=== PATIENT | male | born 2000 | race Hispanic/Latino ===

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

== ENCOUNTER 2018-02-14 09:11 | Emergency (ER) | payer SELFPAY ==
--- NOTE | 2018-02-14 10:25 | ER ---
Nurse's Notes [facility] Name: Alexis Gallardo Age: 17 yrs Sex: Male : 2000 Arrival Date: 02/14/2018 Time: 09:14 Bed 9 Private MD: Diagnosis: Acute upper respiratory infection, unspecified Presentation: 02/14 09:39 Presenting complaint: Patient states: I worked outside in the cold and wet, today when ch I woke up i had lots of clear runny nasal drainage, and I am coughing. I dont feel well. Transition of care: patient was not received from another setting of care. Onset of symptoms was February 14, 2018 at 07:00. Risk Assessment: Do you want to hurt yourself or someone else? Patient reports no desire to harm self or others. Initial Sepsis Screen: Does the patient meet any 2 criteria? No. Patient's initial sepsis screen is negative. Does the patient have a suspected source of infection? No. Patient's initial sepsis screen is negative. Care prior to arrival: None. 09:39 Method Of Arrival: Ambulatory 09:39 Acuity: MICHEAL 4 Triage Assessment: 09:41 General: Appears in no apparent distress. comfortable, Behavior is calm, cooperative, ch appropriate for age. Pain: Complains of pain in generalized body aches. Neuro: No deficits noted. Respiratory: Airway is patent Respiratory effort is even, unlabored. GI: No signs and/or symptoms were reported involving the gastrointestinal system. Derm: Skin is pink, warm \T\ dry. Historical: - Allergies: 09:41 No Known Allergies; ch - Home Meds: 09:41 None [Active]; ch - PMHx: 09:41 None; ch - PSHx: 09:41 None; ch - Immunization history:: Adult Immunizations up to date. - Social history:: Smoking status: Patient/guardian denies using tobacco. - Ebola Screening: : Patient negative for fever greater than or equal to 101.5 degrees Fahrenheit, and additional compatible Ebola Virus Disease symptoms Patient denies exposure to infectious person Patient denies travel to an Ebola-affected area in the 21 days before illness onset No symptoms or risks identified at this time. Screenin:42 Abuse screen: Denies threats or abuse. Denies injuries from another. Nutritional ch screening: No deficits noted. Tuberculosis screening: No symptoms or risk factors identified. Fall Risk None identified. Assessment: 09:42 General: Appears in no apparent distress. comfortable, Behavior is calm, cooperative, ch appropriate for age. 10:00 Reassessment: Patient appears in no apparent distress at this time. Patient is alert, ch oriented x 3, equal unlabored respirations, skin warm/dry/pink. kwame elmore moves pt and becomes primary. Vital Signs: 09:41 BP 120 / 70; Pulse 85; Resp 16; Temp 98.3; Pulse Ox 99% on R/A; Pain 0/10; ch ED Course: 09:14 Patient arrived in ED. as 09:25 Janell Garcia, RN is Primary Nurse. 09:40 Triage completed. 09:41 Arm band placed on left wrist. Patient placed in an exam room, on a stretcher. ch 09:42 No apparent distress. Resting quietly. ch 09:42 Patient has correct armband on for positive identification. Placed in gown. Bed in low ch position. Call light in reach. Side rails up X 1. Adult w/ patient. Pulse ox on. NIBP on. 09:42 No provider procedures requiring assistance completed. Patient did not have IV access ch during this emergency room visit. 09:43 Nisha Ak[facility]-C [facility]. kb 09:43 Kale Mason MD is Attending Physician. kb 10:01 Flu and/or RSV swab sent to lab. Strep swab sent to lab. iw Administered Medications: No medications were administered Outcome: 10:25 Discharge ordered by . kb 10:50 Discharged to home ambulatory. 10:50 Condition: improved 10:50 Discharge instructions given to patient, Instructed on discharge instructions, follow up and referral plans. medication usage, Demonstrated understanding of instructions, follow-up care, medications, discharge instructions given by Kwame 10:55 Patient left the ED. dm5 Signatures: Nisha Akhtar FNP-C FNP-Janell Daily RN RN ch Markwardt, Deana, RN RN dmAbi Plata as Kwame Elmoer RN RN iw
--- NOTE | 2018-02-14 10:26 | EDPHYS ---
Physician Documentation [facility] Name: Alexis Gallardo Age: 17 yrs Sex: Male : 2000 Arrival Date: 02/14/2018 Time: 09:14 Bed 9 Private MD: ED Physician Kale Mason HPI: 02/14 10:19 This 17 yrs old Male presents to ER via Ambulatory with complaints of Cold kb Symptoms. 10:19 The patient or guardian reports cough, that is intermittent, described as mild, with no kb sputum, flu symptoms, low-grade fever. Onset: The symptoms/episode began/occurred this morning. Severity of symptoms: At their worst the symptoms were mild, in the emergency department the symptoms are unchanged. Modifying factors: The symptoms are alleviated by nothing, the symptoms are aggravated by nothing. Associated signs and symptoms: Pertinent positives: fever, rhinorrhea, Pertinent negatives: chest pain, diarrhea, ear ache, nausea, sore throat, vomiting. The patient has not experienced similar symptoms in the past. The patient has not recently seen a physician. 10:21 Pt reports he was working outside yesterday. States he was cold and wet for most of the kb day so he thinks that is why he got sick. Historical: - Allergies: 09:41 No Known Allergies; ch - Home Meds: 09:41 None [Active]; ch - PMHx: 09:41 None; ch - PSHx: 09:41 None; ch - Immunization history:: Adult Immunizations up to date. - Social history:: Smoking status: Patient/guardian denies using tobacco. - Ebola Screening: : Patient negative for fever greater than or equal to 101.5 degrees Fahrenheit, and additional compatible Ebola Virus Disease symptoms Patient denies exposure to infectious person Patient denies travel to an Ebola-affected area in the 21 days before illness onset No symptoms or risks identified at this time. ROS: 10:18 Cardiovascular: Negative for chest pain, palpitations, and edema, Abdomen/GI: Negative kb for abdominal pain, nausea, vomiting, diarrhea, and constipation, Back: Negative for injury and pain, : Negative for injury, bleeding, discharge, and swelling, MS/Extremity: Negative for injury and deformity, Skin: Negative for injury, rash, and discoloration, Neuro: Negative for headache, weakness, numbness, tingling, and seizure. 10:18 Constitutional: Positive for fever, Negative for body aches, chills, fatigue, malaise, poor PO intake, weight loss. 10:18 ENT: Positive for rhinorrhea, sinus congestion. 10:18 Respiratory: Positive for cough, Negative for dyspnea on exertion, hemoptysis, orthopnea, pleurisy, shortness of breath, sputum production, wheezing. Exam: 10:18 Constitutional: This is a well developed, well nourished patient who is awake, alert, kb and in no acute distress. Head/Face: Normocephalic, atraumatic. ENT: Nares patent. No nasal discharge, no septal abnormalities noted. Tympanic membranes are normal and external auditory canals are clear. Oropharynx with no redness, swelling, or masses, exudates, or evidence of obstruction, uvula midline. Mucous membranes moist. Neck: Trachea midline, no thyromegaly or masses palpated, and no cervical lymphadenopathy. Supple, full range of motion without nuchal rigidity, or vertebral point tenderness. No Meningismus. Chest/axilla: Normal chest wall appearance and motion. Nontender with no deformity. No lesions are appreciated. Cardiovascular: Regular rate and rhythm with a normal S1 and S2. No gallops, murmurs, or rubs. Normal PMI, no JVD. No pulse deficits. Respiratory: Lungs have equal breath sounds bilaterally, clear to auscultation and percussion. No rales, rhonchi or wheezes noted. No increased work of breathing, no retractions or nasal flaring. Abdomen/GI: Soft, non-tender, with normal bowel sounds. No distension or tympany. No guarding or rebound. No evidence of tenderness throughout. Skin: Warm, dry with normal turgor. Normal color with no rashes, no lesions, and no evidence of cellulitis. MS/ Extremity: Pulses equal, no cyanosis. Neurovascular intact. Full, normal range of motion. Neuro: Awake and alert, GCS 15, oriented to person, place, time, and situation. Cranial nerves II-XII grossly intact. Motor strength 5/5 in all extremities. Sensory grossly intact. Cerebellar exam normal. Normal gait. Vital Signs: 09:41 BP 120 / 70; Pulse 85; Resp 16; Temp 98.3; Pulse Ox 99% on R/A; Pain 0/10; ch MDM: 09:43 Patient medically screened. kb 10:19 Data reviewed: vital signs, nurses notes. Data interpreted: Pulse oximetry: on room air kb is 99 %. Interpretation: normal. 10:24 Counseling: I had a detailed discussion with the patient and/or guardian regarding: the kb historical points, exam findings, and any diagnostic results supporting the discharge/admit diagnosis, lab results, the need for outpatient follow up, a family practitioner, to return to the emergency department if symptoms worsen or persist or if there are any questions or concerns that arise at home. 02/14 09:39 Order name: Flu; Complete Time: 10:24 02/14 09:39 Order name: Strep; Complete Time: 10:24 02/14 10:25 Order name: Throat Culture EDMS Administered Medications: No medications were administered Disposition: 11:23 Co-signature as Attending Physician, Kale Mason MD I agree with the assessment and kdr plan of care. Disposition: 02/14/18 10:25 Discharged to Home. Impression: Acute upper respiratory infection, unspecified. - Condition is Stable. - Discharge Instructions: Upper Respiratory Infection, Adult, [id number]. - Work release form, Medication Reconciliation Form, Thank You Letter, Antibiotic Education, Prescription Opioid Use form. - Follow up: Emergency Department; When: As needed; Reason: Worsening of condition. Follow up: Private Physician; When: 2 - 3 days; Reason: Recheck today's complaints, Continuance of care, Re-evaluation by your physician. Signatures: Dispatcher [employer] EDCA Nisha Akhtar, ROMEO-C BROOM STITCHER-Janell Daily, Morenita Carlos RN, ch, RN BRENDA dmKale Cisse MD MD [facility] Corrections: (The following items were deleted from the chart) 10:55 10:25 02/14/2018 10:25 Discharged to Home. Impression: Acute upper respiratory dm5 infection, unspecified. Condition is Stable. Forms are Medication Reconciliation Form, Thank You Letter, Antibiotic Education, Prescription Opioid Use. Follow up: Emergency Department; When: As needed; Reason: Worsening of condition. Follow up: Private Physician; When: 2 - 3 days; Reason: Recheck today's complaints, Continuance of care, Re-evaluation by your physician. kb
== END 2018-02-14 10:55 | disposition home or self-care (01) ==
LOC: ER 09:11
DX: J06.9 Acute upper respiratory infection, unspecified (principal)
CPT/HCPCS: 87070; 87081; 87804; 99283